=== PATIENT | female | born 1945 | race Caucasian/White ===

== ENCOUNTER 2016-11-30 10:06 | Emergency (ER) | payer BC, OTHER ==
[2016-11-30 10:13] VITALS: BP 133/78; PULSE 70; TEMP 97.5; BMI 28.1
[2016-11-30] MEDS ORDERED: ACETAMINOPHEN 500 MG TABLET (FP) PO ONE (11:44)
[2016-11-30] MEDS ORDERED: ACETAMINOPHEN 500 MG TABLET (FP) ONE (11:46)
--- NOTE | 2016-11-30 11:49 | PDOC ---
History of Present Illness - General Chief Complaint: Pain Stated Complaint: RT FOOT PAIN, PCP SENT Time Seen by Provider: 11/30/16 11:35 History Source: Patient Exam Limitations: No Limitations - History of Present Illness Initial Comments: 11/30/16 11:52 My Chief Complaint: rt. lateral foot pain History of present illness: Patient is a 71 year old female with a history of anemia, GERD, frequent UTIs, bilateral knee replacement here today complaining of worsening pain to her right fifth metatarsal area for the last 4 days. Patient was seen by her forest pathology associate professor Dr. Maico Rodgers who sent her here for a painful right forefoot pain equivocal for fracture shaft of the fifth metatarsal right foot. Patient denies any injury to her foot or twisting her foot. Denies any new shoes. Patient denies any fever. Patient denies any other symptoms. Patient denies numbness of her right foot. 11/30/16 11:54 Occurred: reports: other (4 days ) Severity: Yes: severe (rt. 5th metatarsal ) Lower Extremity Pain Location: right: other (5th metatarsal ) Method of Injury: Yes: unknown Modifying Factors: improves with: None Lower Ext. Injury Location - Specific Injury Location Foot: right foot pain (5th metatarsal ), right foot swelling (rt. 5th metatarsal ), right foot other (rt. 5th metatarsal jt slight erythema) Extremity Pain Location - Extremity Pain Location Extremity Pain Locations: right: other (5th metatarsal area) Past History - Past Medical History Allergies/Adverse Reactions: Allergies Allergy/AdvReac Type Severity Reaction Status Date / Time No Known Drug Allergies Allergy Verified 11/30/16 10:08 Home Medications: Ambulatory Orders Albuterol Sulfate [Proair Respiclick] 90 mcg IH PRN PRN 08/06/16 Ranitidine HCl 150 mg PO DAILY 08/06/16 Aspirin [Ecotrin] 81 mg PO DAILY #0 08/10/16 Furosemide [Lasix -] 20 mg PO DAILY 08/10/16 Pantoprazole Sodium [Protonix -] 40 mg PO DAILY 08/10/16 Anemia: Yes (WAS TREATED WITH IRON) Asthma: No Cancer: No Cardiac Disorders: No CVA: No COPD: No CHF: No Dementia: No Diabetes: No GI Disorders: Yes (gerd,ulcers) Disorders: Yes (HAS HAD FREQUENT UTI'S IN THE PAST) HTN: No Hypercholesterolemia: No Liver Disease: No Seizures: No Thyroid Disease: No - Surgical History Abdominal Surgery: No Appendectomy: No Cardiac Surgery: No Cholecystectomy: No Lung Surgery: No Neurologic Surgery: No Orthopedic Surgery: Yes (RIGHT KNEE REPLACEMENT 2006) Other Surgical History: 11/30/16 11:49 - Immunization History Immunization Up to Date: Yes - Psycho/Social/Smoking Cessation Hx Anxiety: No Suicidal Ideation: No Smoking History: Never smoked Have you smoked in the past 12 months: No Information on smoking cessation initiated: No Hx Alcohol Use: No Drug/Substance Use Hx: No Substance Use Type: None Hx Substance Use Treatment: No Review of Systems - Review of Systems Able to Perform ROS?: Yes Constitutional: No: Symptoms Reported HEENTM: No: Symptoms Reported Respiratory: No: Symptoms reported Cardiac (ROS): No: Symptoms Reported ABD/GI: No: Symptoms Reported : No: Symptoms Reported Musculoskeletal: Yes: Joint Pain (rt. 5th metatarsal ), Joint Swelling (slight rt. 5th metatarsal area) Integumentary: Yes: Erythema (minimal erythema rt. 5th metatarsal ) Neurological: No: Symptoms reported *Physical Exam - Vital Signs Last Vital Signs Temp Pulse Resp BP Pulse Ox 97.5 F L 70 18 133/78 100 11/30/16 10:09 11/30/16 10:09 11/30/16 10:09 11/30/16 10:09 11/30/16 10:09 - Physical Exam General Appearance: Yes: Appropriately Dressed Vascular Pulses: Dorsalis-Pedis (R): 4+ Extremity: positive: Normal Capillary Refill, Normal Range of Motion, Tender ( rt. 5th metatarsal point tenderness), Swelling (minimal rt. 5th metatarsal area ), Erythema (rt. 5th metarsal minimal ) Integumentary: positive: Other (see under extremity ) Neurologic: positive: Normal Response, Responsive. negative: Numbness, Sensory Deficit (rt. foot) Deep Tendon Reflexes: Ankle (R): 4+ Procedures - Consent Consent obtained: From Patient - Splinting Splint Location: Right: Foot Pre-Proc Neuro Vasc Exam: normal Darryn Bandage: 3" Sling: No Complications: No Progress: 11/30/16 12:36 cast shoe applied Medical Decision Making - Medical Decision Making 11/30/16 11:54 Patient is a 71 year old female with a history of anemia, GERD, frequent UTIs, bilateral knee replacement here today complaining of worsening pain to her right fifth metatarsal area for the last 4 days. Patient was seen by her forest pathology associate professor Dr. Maico Rodgers who sent her here for a painful right forefoot pain equivocal for fracture shaft of the fifth metatarsal right foot. Patient denies any injury to her foot or twisting her foot. Denies any new shoes. Patient denies any fever. Patient denies any other symptoms. Patient denies numbness of her right foot. right foot pain over rt. 5th metatarsal with slight edema and erythema r/o fracture rt. 5th metatarsal PLAN: xray right foot revealed a mid shaft fracture of 5 th metatarsal and heel spur per Dr. Carrillo acetaminophen 1000 mg po now Reyna wrap, hard cast shoe follow up with orthopedist 11/30/16 12:30 *DC/Admit/Observation/Transfer Diagnosis at time of Disposition: Fracture, metacarpal shaft Qualifiers: Encounter type: initial encounter Metacarpal bone: fifth Fracture type: closed Fracture alignment: nondisplaced Laterality: right Qualified Code(s): S62.356A - Nondisplaced fracture of shaft of fifth metacarpal bone, right hand, initial encounter for closed fracture - Discharge Dispostion Disposition: HOME Condition at time of disposition: Stable - Referrals Referrals: Ada Oneill [Primary Care Provider] - Kenny Lorenzo MD [Staff Physician] - - Patient Instructions Additional Instructions: Elevate right foot as much as possible and keep darryn wrap on during the day and use hard sole shoe Follow up orthopedist as soon as possible take acetaminophen as needed as directed by ihsan Avoid walking a lot patient voiced understanding of discharge instructions and all questions were answered
== END 2016-11-30 12:41 | disposition home or self-care (01) ==
LOC: JERFT 10:06
DX: S92.354A Nondisplaced fracture of fifth metatarsal bone, right foot, initial encounter for closed fracture (principal); X58.XXXA Exposure to other specified factors, initial encounter; Y93.89 Activity, other specified; Y92.89 Other specified places as the place of occurrence of the external cause
CPT/HCPCS: 73630-TC-RT; 99281-25

== ENCOUNTER 2020-10-15 12:28 | Observation (INO) | payer OTHER, BC ==
[2020-10-15 15:22] LABS: BASO % 1.2 % (0-2.0); EOS % 4.4 % (0-4.5); HEMATOCRIT 33.9 % (32.4-45.2); HEMOGLOBIN 11.4 GM/dL (10.7-15.3); LYMPH % 46.2 % (8-40); MCH 38.5 pg (25.7-33.7); MCHC 33.5 g/dl (32.0-36.0); MEAN PLT VOLUME 8.6 fl (7.5-11.1); MONO % 9.8 % (3.8-10.2); NEUT % 38.4 % (42.8-82.8); PLATELET COUNT 113 K/MM3 (134-434); RBC 2.95 M/mm3 (3.60-5.2); RDW 13.4 % (11.6-15.6); WHITE BLOOD COUNT 2.6 K/mm3 (4.0-10.0)
[2020-10-15 15:39] LABS: CHLORIDE 112 mmol/L (98-107); POTASSIUM 4.3 mmol/L (3.5-5.1); SODIUM 145 mmol/L (136-145)
[2020-10-15 15:41] LABS: ANION GAP 8 MMOL/L (8-16); BLOOD UREA NITROGEN 9.4 mg/dL (7-18); CALCIUM 8.1 mg/dL (8.5-10.1); CO2 25 mmol/L (21-32); GLUCOSE,RANDOM 78 mg/dL (74-106)
[2020-10-15 15:42] LABS: ALBUMIN 2.8 g/dl (3.4-5.0); MAGNESIUM 1.3 mg/dL (1.8-2.4)
[2020-10-15 15:45] LABS: CREATININE 0.7 mg/dL (0.55-1.3); SGOT/AST 69 U/L (15-37); SGPT/ALT 35 U/L (13-61)
[2020-10-15 15:47] LABS: BILIRUBIN,TOTAL 0.3 mg/dL (0.2-1)
[2020-10-15 15:48] LABS: ALK PHOS 89 U/L (45-117)
[2020-10-15] MEDS ORDERED: MAGNESIUM SULF 50% (8.12 MEQ/2 ML-1 GM VIAL) IVPB ONE (16:04)
[2020-10-15 16:07] LABS: ANISOCYTOSIS 3+; MACROCYTOSIS 3+; OVALOCYTE 1+
[2020-10-15 16:08] LABS: PLATELET ESTIMATE SLT DECREASE
[2020-10-15] MEDS ORDERED: MAGNESIUM 1GM/D5W - 1 GM/100 ML IVPB IVPB ONE (16:11)
[2020-10-15] MEDS ORDERED: ALBUTEROL SO4 HFA INHALER IH PRN (20:24)
[2020-10-16 01:19] LABS: EPI CELLS >36 /uL (0-25.1); HYALINE CASTS 3 /uL (0-3.1); PH,URINE 6.5 (5.0-8.0); URINE APPEARANCE CLOUDY; URINE BACTERIA >9,000 /uL (0-1359); URINE BILIRUBIN NEGATIVE (NEGATIVE); URINE COLOR YELLOW; URINE GLUCOSE (UA) NEGATIVE (NEGATIVE); URINE KETONE NEGATIVE (NEGATIVE); URINE LEUK ESTERASE 2+ (NEGATIVE); URINE NITRITE POSITIVE (NEGATIVE); URINE PROTEIN NEGATIVE (NEGATIVE); URINE UROBILINOGEN 0.2 mg/dL (0.2-1.0); URINE WBC 169 /uL (0-25.8)
[2020-10-16 07:27] LABS: BASO % 1.3 % (0-2.0); HEMATOCRIT 33.7 % (32.4-45.2); HEMOGLOBIN 11.6 GM/dL (10.7-15.3); LYMPH % 29.4 % (8-40); MCHC 34.4 g/dl (32.0-36.0); MEAN CELL VOLUME 113.4 fl (80-96); MEAN PLT VOLUME 8.8 fl (7.5-11.1); MONO % 8.6 % (3.8-10.2); NEUT % 57.7 % (42.8-82.8); PLATELET COUNT 117 K/MM3 (134-434); RBC 2.97 M/mm3 (3.60-5.2); RDW 13.1 % (11.6-15.6); WHITE BLOOD COUNT 3.3 K/mm3 (4.0-10.0)
[2020-10-16 07:44] LABS: CHLORIDE 104 mmol/L (98-107); SODIUM 139 mmol/L (136-145)
[2020-10-16 07:50] LABS: CALCIUM 8.2 mg/dL (8.5-10.1)
[2020-10-16 07:51] LABS: ALBUMIN 2.9 g/dl (3.4-5.0); ANION GAP 5 MMOL/L (8-16); BLOOD UREA NITROGEN 11.1 mg/dL (7-18); CO2 30 mmol/L (21-32); GLUCOSE,RANDOM 89 mg/dL (74-106)
[2020-10-16 07:54] LABS: CREATININE 0.8 mg/dL (0.55-1.3); SGOT/AST 81 U/L (15-37); SGPT/ALT 35 U/L (13-61)
[2020-10-16 07:55] LABS: ALK PHOS 97 U/L (45-117)
[2020-10-16 07:56] LABS: TOT PROT 6.2 g/dl (6.4-8.2)
[2020-10-16 08:27] LABS: BILIRUBIN,TOTAL 0.8 mg/dL (0.2-1)
[2020-10-16] MEDS ORDERED: FUROSEMIDE 20 MG TABLET (FP) PO SCH (10:00)
[2020-10-16] MEDS ORDERED: ASPIRIN COATED 81 MG TABLET.EC PO SCH (10:00)
[2020-10-16] MEDS ORDERED: PANTOPRAZOLE 40 MG TABLET PO SCH (10:00)
[2020-10-16 10:21] VITALS: BMI 29.9
[2020-10-16 13:48] VITALS: BP 133/82; PULSE 76; TEMP 97.7
== END 2020-10-16 18:10 | disposition home or self-care (01) ==
LOC: JER 12:28 → JERBED 17:04 → J4S 10-16 06:32
PROVIDERS: ADMIT Internal Medicine; ATTEND Internal Medicine
PROC: 3E0F7SF Introduction of Other Gas into Respiratory Tract, Via Natural or Artificial Opening (ICD-10-PCS; principal; 2020-10-15)
DX: R55 Syncope and collapse (principal); J44.9 Chronic obstructive pulmonary disease, unspecified; D64.9 Anemia, unspecified; E78.00 Pure hypercholesterolemia, unspecified; K44.9 Diaphragmatic hernia without obstruction or gangrene; F32.9 Major depressive disorder, single episode, unspecified; K21.9 Gastro-esophageal reflux disease without esophagitis; Z96.651 Presence of right artificial knee joint; Z87.440 Personal history of urinary (tract) infections
CPT/HCPCS: 36415; 70450-TC; 71045-TC-FY; 80053; 81003; 82272; 82550; 83735; 84484; 85025; 93005; 93010; 94640; 99285-25; C9803; G0378; U0003

== ENCOUNTER 2020-10-17 18:33 | Emergency (ER) | payer OTHER, BC ==
[2020-10-17 18:46] VITALS: TEMP 98.4; BMI 25.3
[2020-10-17] MEDS ORDERED: SODIUM CHLORIDE 0.9% 500 ML INFUS.BAG IV ONE (19:38)
[2020-10-17 20:01] LABS: BASO % 1.5 % (0-2.0); EOS % 4.4 % (0-4.5); HEMATOCRIT 33.7 % (32.4-45.2); HEMOGLOBIN 11.4 GM/dL (10.7-15.3); LYMPH % 40.3 % (8-40); MCH 38.7 pg (25.7-33.7); MCHC 33.8 g/dl (32.0-36.0); MEAN CELL VOLUME 114.4 fl (80-96); MEAN PLT VOLUME 8.7 fl (7.5-11.1); MONO % 10.6 % (3.8-10.2); NEUT % 43.2 % (42.8-82.8); PLATELET COUNT 152 K/MM3 (134-434); RBC 2.94 M/mm3 (3.60-5.2); RDW 13.2 % (11.6-15.6)
[2020-10-17 20:23] LABS: CHLORIDE 105 mmol/L (98-107); POTASSIUM 5.1 mmol/L (3.5-5.1); SODIUM 139 mmol/L (136-145)
[2020-10-17 20:26] LABS: CALCIUM 8.3 mg/dL (8.5-10.1)
[2020-10-17 20:27] LABS: ALBUMIN 2.8 g/dl (3.4-5.0); ANION GAP 7 MMOL/L (8-16); BLOOD UREA NITROGEN 9.6 mg/dL (7-18); CO2 27 mmol/L (21-32); GLUCOSE,RANDOM 95 mg/dL (74-106); MAGNESIUM 1.4 mg/dL (1.8-2.4)
[2020-10-17 20:30] LABS: CREATININE 0.9 mg/dL (0.55-1.3); SGOT/AST 75 U/L (15-37); SGPT/ALT 33 U/L (13-61)
[2020-10-17 20:32] LABS: BILIRUBIN,TOTAL 0.6 mg/dL (0.2-1); TOT PROT 6.1 g/dl (6.4-8.2)
[2020-10-17 20:33] LABS: ALK PHOS 93 U/L (45-117)
[2020-10-17 21:30] VITALS: BP 111/87; PULSE 89
== END 2020-10-17 21:30 | disposition home or self-care (01) ==
LOC: JER 18:33
DX: R42 Dizziness and giddiness (principal)
CPT/HCPCS: 36415; 71045-TC-FY; 80053; 82550; 82962; 83735; 84484; 85025; 93005; 93010; 99285-25

== ENCOUNTER 2020-11-14 17:42 | Emergency (ER) | payer OTHER, BC ==
[2020-11-14 18:09] VITALS: TEMP 97.6; BMI 24.3
[2020-11-14 19:56] LABS: BASO % 0.7 % (0-2.0); EOS % 3.3 % (0-4.5); HEMATOCRIT 35.9 % (32.4-45.2); MCH 38.2 pg (25.7-33.7); MCHC 33.5 g/dl (32.0-36.0); MEAN CELL VOLUME 114.1 fl (80-96); MONO % 9.6 % (3.8-10.2); NEUT % 46.4 % (42.8-82.8); PLATELET COUNT 133 K/MM3 (134-434); RBC 3.14 M/mm3 (3.60-5.2); RDW 13.8 % (11.6-15.6); WHITE BLOOD COUNT 2.7 K/mm3 (4.0-10.0)
[2020-11-14 20:02] LABS: INR 0.92 (0.83-1.09); PROTHROMBIN TIME (PATIENT) 11.4 SEC (9.7-13.0)
[2020-11-14 20:05] LABS: ACTIVATED PTT 28.5 SECONDS (25.2-36.5)
[2020-11-14 20:12] LABS: POTASSIUM 4.8 mmol/L (3.5-5.1)
[2020-11-14 20:14] LABS: ALBUMIN 3.3 g/dl (3.4-5.0); CALCIUM 8.2 mg/dL (8.5-10.1)
[2020-11-14 20:15] LABS: BLOOD UREA NITROGEN 16.7 mg/dL (7-18)
[2020-11-14 20:18] LABS: CREATININE 1.2 mg/dL (0.55-1.3)
[2020-11-14 20:19] LABS: BILIRUBIN,TOTAL 0.5 mg/dL (0.2-1); TOT PROT 6.8 g/dl (6.4-8.2)
[2020-11-14 21:38] VITALS: BP 112/74; PULSE 60
== END 2020-11-14 21:39 | disposition home or self-care (01) ==
LOC: JER 17:42
DX: S01.111A Laceration without foreign body of right eyelid and periocular area, initial encounter (principal); W19.XXXA Unspecified fall, initial encounter
CPT/HCPCS: 36415; 70450-TC; 71045-TC-FY; 72100-TC-FY; 72125-TC; 72170-TC-FY; 80053; 80307; 84484; 85025; 85610; 85730; 93005; 93010; 99285-25

== ENCOUNTER 2022-01-30 14:22 | Inpatient (IN) | payer OTHER, BC ==
[2022-01-30] MEDS ORDERED: CEFTRIAXONE 1 GM in DEXTROSE 5%-WATER - 100 ML IVPB ONE (15:02)
[2022-01-30] MEDS ORDERED: chlordiazePOXIDE HCL 25 MG CAPSULE PO ONE (15:31)
[2022-01-30] MEDS ORDERED: SODIUM CHLORIDE 0.9% 500 ML INFUS.BAG IV ONE (15:31)
[2022-01-30] MEDS ORDERED: CEFTRIAXONE 1 GM/50 ML BAG ONE (15:36)
[2022-01-30 16:23] LABS: BASO % 0.5 % (0-2.0); HEMATOCRIT 40.6 % (32.4-45.2); HEMOGLOBIN 13.1 GM/dL (10.7-15.3); LYMPH % 15.3 % (8-40); MCH 37.9 pg (25.7-33.7); MCHC 32.2 g/dl (32.0-36.0); MEAN CELL VOLUME 117.9 fl (80-96); MEAN PLT VOLUME 7.9 fl (7.5-11.1); NEUT % 81.2 % (42.8-82.8); PLATELET COUNT 147 10^3/uL (134-434); RBC 3.44 M/mm3 (3.60-5.2); RDW 13.1 % (11.6-15.6); WHITE BLOOD COUNT 5.9 K/mm3 (4.0-10.0)
[2022-01-30 16:24] LABS: CALCIUM 9.3 mg/dL (8.5-10.1)
[2022-01-30 16:25] LABS: ALBUMIN 3.4 g/dl (3.4-5.0); BLOOD UREA NITROGEN 18.8 mg/dL (7-18)
[2022-01-30 16:28] LABS: CREATININE 0.9 mg/dL (0.55-1.3)
[2022-01-30 16:29] LABS: BILIRUBIN,TOTAL 1.2 mg/dL (0.2-1); TOT PROT 7.2 g/dl (6.4-8.2)
[2022-01-30] MEDS ORDERED: chlordiazePOXIDE HCL 25 MG CAPSULE ONE (17:17)
[2022-01-30] MEDS ORDERED: ALBUTEROL SO4 HFA INHALER IH PRN (18:49)
[2022-01-30] MEDS ORDERED: SODIUM CHLORIDE 1,000 ML IV SCH (19:00)
[2022-01-30] MEDS: chlordiazePOXIDE HCL 25 MG CAPSULE PO SCH (19:37)
[2022-01-30] MEDS: HEPARIN NA (PORCINE) 5,000 UNITS/ML 1ML VIAL SQ SCH (23:16)
[2022-01-31] MEDS: IBUPROFEN 400 MG TABLET (FP) PO PRN ×2 (01:41→22:14)
[2022-01-31] MEDS: guaiFENesin 200 MG/10 ML 10 ML UNIT-DOSE CUPS PO PRN ×2 (01:41→22:15)
[2022-01-31] MEDS: chlordiazePOXIDE HCL 25 MG CAPSULE PO SCH ×3 (03:01→18:38)
[2022-01-31 09:56] LABS: MEAN PLT VOLUME 8.1 fl (7.5-11.1)
[2022-01-31 09:58] LABS: BASO % 0.1 % (0-2.0); HEMATOCRIT 34.1 % (32.4-45.2); HEMOGLOBIN 11.6 GM/dL (10.7-15.3); LYMPH % 7.6 % (8-40); MCH 38.1 pg (25.7-33.7); MONO % 6.1 % (3.8-10.2); NEUT % 86.2 % (42.8-82.8); PLATELET COUNT 111 10^3/uL (134-434); RBC 3.04 M/mm3 (3.60-5.2); RDW 12.6 % (11.6-15.6); WHITE BLOOD COUNT 6.6 K/mm3 (4.0-10.0)
[2022-01-31 10:34] LABS: ALBUMIN 3.1 g/dl (3.4-5.0); BILIRUBIN,TOTAL 1.3 mg/dL (0.2-1); BLOOD UREA NITROGEN 26.7 mg/dL (7-18); CALCIUM 8.4 mg/dL (8.5-10.1); CREATININE 1.1 mg/dL (0.55-1.3); TOT PROT 6.4 g/dl (6.4-8.2)
[2022-01-31] MEDS ORDERED: cefTRIAXone SODIUM 1 GM VIAL ONE (10:39)
[2022-01-31] MEDS ORDERED: DEXTROSE 5%-WATER - 50 ML IVPB ONE (10:39)
[2022-01-31] MEDS: CEFTRIAXONE 1 GM in DEXTROSE 5%-WATER - 50 ML IVPB SCH (10:48)
[2022-01-31] MEDS: SODIUM CHLORIDE 1,000 ML IV SCH (10:49)
[2022-01-31] MEDS: HEPARIN NA (PORCINE) 5,000 UNITS/ML 1ML VIAL SQ SCH ×2 (10:50→21:31)
[2022-01-31] MEDS: PANTOPRAZOLE 40 MG TABLET PO SCH (10:50)
[2022-01-31] MEDS: FAMOTIDINE 20 MG TABLET PO SCH (10:50)
[2022-01-31] MEDS: ASPIRIN COATED 81 MG TABLET.EC PO SCH (10:50)
[2022-01-31 14:59] LABS: BILIRUBIN,DIRECT 0.6 mg/dL (0.0-0.2)
[2022-01-31] MEDS: POLYETHYLENE GLYCOL (HEALTHYLAX) 3350 17 GM PACKET PO SCH (18:37)
[2022-01-31 19:35] LABS: EPI CELLS >36 /uL (0-25.1); HYALINE CASTS 7 /uL (0-3.1); URINE APPEARANCE CLEAR; URINE BACTERIA 55 /uL (0-1359); URINE BILIRUBIN NEGATIVE (NEGATIVE); URINE COLOR YELLOW; URINE GLUCOSE (UA) NEGATIVE (NEGATIVE); URINE KETONE 2+ (NEGATIVE); URINE LEUK ESTERASE 2+ (NEGATIVE); URINE NITRITE NEGATIVE (NEGATIVE); URINE PROTEIN 1+ (NEGATIVE); URINE RBC 218 /uL (0-23.9); URINE UROBILINOGEN 0.2 mg/dL (0.2-1.0); URINE WBC 150 /uL (0-25.8)
[2022-02-01] MEDS: chlordiazePOXIDE HCL 25 MG CAPSULE PO SCH ×2 (03:02→10:05)
[2022-02-01] MEDS: guaiFENesin 200 MG/10 ML 10 ML UNIT-DOSE CUPS PO PRN ×2 (04:38→10:38)
[2022-02-01] MEDS: SODIUM CHLORIDE 1,000 ML IV SCH (08:37)
[2022-02-01] MEDS: IBUPROFEN 400 MG TABLET (FP) PO PRN (08:39)
[2022-02-01 09:18] LABS: BASO % 0.2 % (0-2.0); EOS % 0.2 % (0-4.5); HEMATOCRIT 33.7 % (32.4-45.2); HEMOGLOBIN 11.5 GM/dL (10.7-15.3); LYMPH % 19.2 % (8-40); MCH 38.3 pg (25.7-33.7); MCHC 34.2 g/dl (32.0-36.0); MEAN CELL VOLUME 111.9 fl (80-96); MEAN PLT VOLUME 8.2 fl (7.5-11.1); MONO % 5.2 % (3.8-10.2); NEUT % 75.2 % (42.8-82.8); PLATELET COUNT 83 10^3/uL (134-434); RBC 3.01 M/mm3 (3.60-5.2); RDW 12.5 % (11.6-15.6); WHITE BLOOD COUNT 5.3 K/mm3 (4.0-10.0)
[2022-02-01] MEDS ORDERED: cefTRIAXone SODIUM 1 GM VIAL ONE (09:38)
[2022-02-01] MEDS ORDERED: DEXTROSE 5%-WATER - 50 ML IVPB ONE (09:38)
[2022-02-01 09:49] LABS: CALCIUM 8.5 mg/dL (8.5-10.1)
[2022-02-01 09:50] LABS: ALBUMIN 3.4 g/dl (3.4-5.0); BLOOD UREA NITROGEN 24.5 mg/dL (7-18)
[2022-02-01 09:52] LABS: BILIRUBIN,DIRECT 0.5 mg/dL (0.0-0.2); CREATININE 0.8 mg/dL (0.55-1.3)
[2022-02-01 09:54] LABS: BILIRUBIN,TOTAL 1.2 mg/dL (0.2-1); TOT PROT 6.7 g/dl (6.4-8.2)
[2022-02-01] MEDS: CEFTRIAXONE 1 GM in DEXTROSE 5%-WATER - 50 ML IVPB SCH (10:01)
[2022-02-01] MEDS: HEPARIN NA (PORCINE) 5,000 UNITS/ML 1ML VIAL SQ SCH ×2 (10:02→21:26)
[2022-02-01] MEDS: PANTOPRAZOLE 40 MG TABLET PO SCH (10:02)
[2022-02-01] MEDS: ASPIRIN COATED 81 MG TABLET.EC PO SCH (10:02)
[2022-02-01] MEDS: FAMOTIDINE 20 MG TABLET PO SCH (10:02)
[2022-02-01] MEDS: POLYETHYLENE GLYCOL (HEALTHYLAX) 3350 17 GM PACKET PO SCH (10:03)
[2022-02-02] MEDS: guaiFENesin 200 MG/10 ML 10 ML UNIT-DOSE CUPS PO PRN (04:35)
[2022-02-02] MEDS ORDERED: cefTRIAXone SODIUM 1 GM VIAL ONE (10:04)
[2022-02-02] MEDS: FAMOTIDINE 20 MG TABLET PO SCH (10:30)
[2022-02-02] MEDS: FOLIC ACID 1 MG TABLET (FP) PO SCH (10:30)
[2022-02-02] MEDS: IBUPROFEN 400 MG TABLET (FP) PO PRN (10:30)
[2022-02-02] MEDS: POLYETHYLENE GLYCOL (HEALTHYLAX) 3350 17 GM PACKET PO SCH ×2 (10:30→10:48)
[2022-02-02] MEDS: CEFTRIAXONE 1 GM in DEXTROSE 5%-WATER - 50 ML IVPB SCH (10:30)
[2022-02-02] MEDS: ASPIRIN COATED 81 MG TABLET.EC PO SCH (10:30)
[2022-02-02] MEDS: HEPARIN NA (PORCINE) 5,000 UNITS/ML 1ML VIAL SQ SCH ×2 (10:30→22:06)
[2022-02-02] MEDS: THIAMINE HCL 100 MG TABLET (FP) PO SCH (10:34)
[2022-02-02] MEDS: PANTOPRAZOLE 40 MG TABLET PO SCH (10:34)
[2022-02-02] MEDS: SODIUM CHLORIDE 1,000 ML IV SCH ×2 (10:51→16:54)
[2022-02-02 11:30] LABS: BASO % 0.4 % (0-2.0); EOS % 0.7 % (0-4.5); HEMATOCRIT 32.1 % (32.4-45.2); LYMPH % 19.3 % (8-40); MCH 38.8 pg (25.7-33.7); MCHC 34.3 g/dl (32.0-36.0); MEAN PLT VOLUME 8.6 fl (7.5-11.1); MONO % 6.9 % (3.8-10.2); NEUT % 72.7 % (42.8-82.8); PLATELET COUNT 75 10^3/uL (134-434); RBC 2.84 M/mm3 (3.60-5.2); RDW 12.6 % (11.6-15.6); WHITE BLOOD COUNT 3.7 K/mm3 (4.0-10.0)
[2022-02-02 11:48] LABS: BLOOD UREA NITROGEN 11.8 mg/dL (7-18); CALCIUM 8.3 mg/dL (8.5-10.1)
[2022-02-02 11:50] LABS: CREATININE 0.6 mg/dL (0.55-1.3)
[2022-02-02 11:51] LABS: BILIRUBIN,TOTAL 1.2 mg/dL (0.2-1); TOT PROT 6.2 g/dl (6.4-8.2)
[2022-02-02 11:58] LABS: ANISOCYTOSIS 2+; MACROCYTOSIS 2+
[2022-02-02] MEDS: POTASSIUM CHLORIDE TABS 10 MEQ TABLET.ER (FP) PO SCH (12:17)
[2022-02-02 23:52] LABS: BILIRUBIN,DIRECT 0.5 mg/dL (0.0-0.2)
[2022-02-03 08:38] LABS: BASO % 0.5 % (0-2.0); EOS % 1.9 % (0-4.5); HEMATOCRIT 32.2 % (32.4-45.2); LYMPH % 22.5 % (8-40); MCH 38.2 pg (25.7-33.7); MCHC 34.2 g/dl (32.0-36.0); MEAN CELL VOLUME 111.6 fl (80-96); MEAN PLT VOLUME 8.4 fl (7.5-11.1); MONO % 7.3 % (3.8-10.2); NEUT % 67.8 % (42.8-82.8); PLATELET COUNT 78 10^3/uL (134-434); RBC 2.88 M/mm3 (3.60-5.2); RDW 12.5 % (11.6-15.6); WHITE BLOOD COUNT 3.7 K/mm3 (4.0-10.0)
[2022-02-03 09:06] LABS: CALCIUM 8.5 mg/dL (8.5-10.1)
[2022-02-03 09:07] LABS: ALBUMIN 3.3 g/dl (3.4-5.0); BLOOD UREA NITROGEN 8.7 mg/dL (7-18)
[2022-02-03 09:10] LABS: CREATININE 0.6 mg/dL (0.55-1.3)
[2022-02-03 09:11] LABS: BILIRUBIN,TOTAL 1.2 mg/dL (0.2-1); TOT PROT 6.5 g/dl (6.4-8.2)
[2022-02-03] MEDS ORDERED: cefTRIAXone SODIUM 1 GM VIAL ONE (10:11)
[2022-02-03] MEDS ORDERED: DEXTROSE 5%-WATER - 50 ML IVPB ONE (10:11)
[2022-02-03] MEDS: THIAMINE HCL 100 MG TABLET (FP) PO SCH (10:16)
[2022-02-03] MEDS: SODIUM CHLORIDE 1,000 ML IV SCH (10:16)
[2022-02-03] MEDS: PANTOPRAZOLE 40 MG TABLET PO SCH (10:17)
[2022-02-03] MEDS: IBUPROFEN 400 MG TABLET (FP) PO PRN (10:17)
[2022-02-03] MEDS: POTASSIUM CHLORIDE TABS 10 MEQ TABLET.ER (FP) PO SCH (10:17)
[2022-02-03] MEDS: FAMOTIDINE 20 MG TABLET PO SCH (10:17)
[2022-02-03] MEDS: FOLIC ACID 1 MG TABLET (FP) PO SCH (10:17)
[2022-02-03] MEDS: ASPIRIN COATED 81 MG TABLET.EC PO SCH (10:18)
[2022-02-03] MEDS: HEPARIN NA (PORCINE) 5,000 UNITS/ML 1ML VIAL SQ SCH (10:18)
[2022-02-03] MEDS: CEFTRIAXONE 1 GM in DEXTROSE 5%-WATER - 50 ML IVPB SCH (10:18)
[2022-02-03] MEDS: guaiFENesin 200 MG/10 ML 10 ML UNIT-DOSE CUPS PO PRN ×2 (10:18→18:22)
[2022-02-03] MEDS: POLYETHYLENE GLYCOL (HEALTHYLAX) 3350 17 GM PACKET PO SCH (10:19)
[2022-02-03] MEDS ORDERED: POTASSIUM CHLORIDE TABS 20 MEQ TABLET.ER (FP) PO ONE (11:00)
[2022-02-03] MEDS ORDERED: FUROSEMIDE 40 MG/4 ML INJECTABLE VIAL IVPUSH ONE (11:00)
[2022-02-03 12:15] LABS: MAGNESIUM 1.5 mg/dL (1.8-2.4)
[2022-02-03] MEDS: metoPROLOL SUCCINATE 25 MG TAB.SR.24H (FP) PO SCH (18:17)
[2022-02-04 08:37] LABS: BASO % 0.7 % (0-2.0); EOS % 3.3 % (0-4.5); HEMATOCRIT 30.2 % (32.4-45.2); HEMOGLOBIN 10.3 GM/dL (10.7-15.3); LYMPH % 25.2 % (8-40); MCH 38.4 pg (25.7-33.7); MEAN CELL VOLUME 113.2 fl (80-96); MEAN PLT VOLUME 8.2 fl (7.5-11.1); MONO % 9.6 % (3.8-10.2); NEUT % 61.2 % (42.8-82.8); PLATELET COUNT 82 10^3/uL (134-434); RBC 2.67 M/mm3 (3.60-5.2); RDW 12.6 % (11.6-15.6); WHITE BLOOD COUNT 3.1 K/mm3 (4.0-10.0)
[2022-02-04 08:59] LABS: ALBUMIN 2.9 g/dl (3.4-5.0); BLOOD UREA NITROGEN 9.6 mg/dL (7-18); CALCIUM 8.5 mg/dL (8.5-10.1)
[2022-02-04 09:02] LABS: CREATININE 0.6 mg/dL (0.55-1.3)
[2022-02-04 09:04] LABS: TOT PROT 5.9 g/dl (6.4-8.2)
[2022-02-04] MEDS ORDERED: DEXTROSE 5%-WATER - 50 ML IVPB ONE (10:27)
[2022-02-04] MEDS ORDERED: cefTRIAXone SODIUM 1 GM VIAL ONE (10:27)
[2022-02-04] MEDS: POTASSIUM CHLORIDE TABS 20 MEQ TABLET.ER (FP) PO SCH (10:54)
[2022-02-04] MEDS: FAMOTIDINE 20 MG TABLET PO SCH (10:54)
[2022-02-04] MEDS: POLYETHYLENE GLYCOL (HEALTHYLAX) 3350 17 GM PACKET PO SCH (10:54)
[2022-02-04] MEDS: FOLIC ACID 1 MG TABLET (FP) PO SCH (10:54)
[2022-02-04] MEDS: PANTOPRAZOLE 40 MG TABLET PO SCH (10:54)
[2022-02-04] MEDS: CEFTRIAXONE 1 GM in DEXTROSE 5%-WATER - 50 ML IVPB SCH (10:54)
[2022-02-04] MEDS: THIAMINE HCL 100 MG TABLET (FP) PO SCH (10:55)
[2022-02-04] MEDS: metoPROLOL SUCCINATE 25 MG TAB.SR.24H (FP) PO SCH (10:55)
[2022-02-04] MEDS: guaiFENesin 200 MG/10 ML 10 ML UNIT-DOSE CUPS PO PRN (11:02)
[2022-02-05] MEDS: IBUPROFEN 400 MG TABLET (FP) PO PRN (06:44)
[2022-02-05 08:10] LABS: BASO % 0.4 % (0-2.0); EOS % 2.9 % (0-4.5); HEMATOCRIT 29.3 % (32.4-45.2); LYMPH % 21.3 % (8-40); MCH 38.6 pg (25.7-33.7); MCHC 34.2 g/dl (32.0-36.0); MEAN PLT VOLUME 8.5 fl (7.5-11.1); NEUT % 64.4 % (42.8-82.8); PLATELET COUNT 92 10^3/uL (134-434); RDW 12.7 % (11.6-15.6); WHITE BLOOD COUNT 3.8 K/mm3 (4.0-10.0)
[2022-02-05 08:41] LABS: ALBUMIN 2.9 g/dl (3.4-5.0); BLOOD UREA NITROGEN 9.1 mg/dL (7-18)
[2022-02-05 08:43] LABS: CALCIUM 8.7 mg/dL (8.5-10.1); CREATININE 0.7 mg/dL (0.55-1.3)
[2022-02-05 08:45] LABS: BILIRUBIN,TOTAL 0.9 mg/dL (0.2-1)
[2022-02-05] MEDS ORDERED: FUROSEMIDE 40 MG/4 ML INJECTABLE VIAL IVPUSH ONE ×3 (10:12→14:15)
[2022-02-05] MEDS ORDERED: POTASSIUM CHLORIDE TABS 20 MEQ TABLET.ER (FP) PO ONE (10:12)
[2022-02-05] MEDS ORDERED: ALBUTEROL SO4 0.083% IH SOL 2.5 MG/3 ML VIAL.NEB. NEB PRN (10:13)
[2022-02-05] MEDS ORDERED: cefTRIAXone SODIUM 1 GM VIAL ONE (10:38)
[2022-02-05] MEDS ORDERED: DEXTROSE 5%-WATER - 50 ML IVPB ONE (10:39)
[2022-02-05] MEDS: THIAMINE HCL 100 MG TABLET (FP) PO SCH (10:42)
[2022-02-05] MEDS: FAMOTIDINE 20 MG TABLET PO SCH (10:42)
[2022-02-05] MEDS: PANTOPRAZOLE 40 MG TABLET PO SCH (10:42)
[2022-02-05] MEDS: FOLIC ACID 1 MG TABLET (FP) PO SCH (10:42)
[2022-02-05] MEDS: metoPROLOL SUCCINATE 25 MG TAB.SR.24H (FP) PO SCH (10:42)
[2022-02-05] MEDS: CEFTRIAXONE 1 GM in DEXTROSE 5%-WATER - 50 ML IVPB SCH (10:43)
[2022-02-05] MEDS: POLYETHYLENE GLYCOL (HEALTHYLAX) 3350 17 GM PACKET PO SCH (10:43)
[2022-02-05] MEDS: POTASSIUM CHLORIDE TABS 20 MEQ TABLET.ER (FP) PO SCH (10:43)
[2022-02-06 10:21] LABS: ALBUMIN 3.1 g/dl (3.4-5.0); BLOOD UREA NITROGEN 10.1 mg/dL (7-18); CALCIUM 9.2 mg/dL (8.5-10.1)
[2022-02-06 10:24] LABS: CREATININE 0.6 mg/dL (0.55-1.3)
[2022-02-06 10:25] LABS: TOT PROT 6.4 g/dl (6.4-8.2)
[2022-02-06] MEDS ORDERED: cefTRIAXone SODIUM 1 GM VIAL ONE (11:51)
[2022-02-06] MEDS: CEFTRIAXONE 1 GM in DEXTROSE 5%-WATER - 50 ML IVPB SCH (12:05)
[2022-02-06] MEDS: FOLIC ACID 1 MG TABLET (FP) PO SCH (12:10)
[2022-02-06] MEDS: metoPROLOL SUCCINATE 25 MG TAB.SR.24H (FP) PO SCH (12:10)
[2022-02-06] MEDS: POLYETHYLENE GLYCOL (HEALTHYLAX) 3350 17 GM PACKET PO SCH (12:10)
[2022-02-06] MEDS: POTASSIUM CHLORIDE TABS 20 MEQ TABLET.ER (FP) PO SCH (12:11)
[2022-02-06] MEDS: THIAMINE HCL 100 MG TABLET (FP) PO SCH (12:11)
[2022-02-06 21:28] VITALS: BMI 23.7
[2022-02-07] MEDS: POLYETHYLENE GLYCOL (HEALTHYLAX) 3350 17 GM PACKET PO SCH (10:23)
[2022-02-07] MEDS: THIAMINE HCL 100 MG TABLET (FP) PO SCH (10:23)
[2022-02-07] MEDS: metoPROLOL SUCCINATE 25 MG TAB.SR.24H (FP) PO SCH (10:23)
[2022-02-07] MEDS: FOLIC ACID 1 MG TABLET (FP) PO SCH (10:23)
[2022-02-07] MEDS: ACETAMINOPHEN 325 MG TABLET (FP) PO PRN (17:27)
[2022-02-08] MEDS: ACETAMINOPHEN 325 MG TABLET (FP) PO PRN ×3 (05:28→20:53)
[2022-02-08] MEDS: THIAMINE HCL 100 MG TABLET (FP) PO SCH (10:03)
[2022-02-08] MEDS: POLYETHYLENE GLYCOL (HEALTHYLAX) 3350 17 GM PACKET PO SCH (10:03)
[2022-02-08] MEDS: FOLIC ACID 1 MG TABLET (FP) PO SCH (10:03)
[2022-02-08] MEDS: metoPROLOL SUCCINATE 25 MG TAB.SR.24H (FP) PO SCH (10:11)
[2022-02-08 23:22] VITALS: BP 143/80; PULSE 82; TEMP 99.5
== END 2022-02-09 00:15 | DRG 433 ==
LOC: JER 14:22 → JERBED 17:00 → J6S 18:23
PROVIDERS: ADMIT Internal Medicine; ATTEND Internal Medicine
DX: K70.10 Alcoholic hepatitis without ascites (principal); N39.0 Urinary tract infection, site not specified; D61.818 Other pancytopenia; J90 Pleural effusion, not elsewhere classified; M62.82 Rhabdomyolysis; N17.9 Acute kidney failure, unspecified; K21.9 Gastro-esophageal reflux disease without esophagitis; J45.909 Unspecified asthma, uncomplicated; R42 Dizziness and giddiness; E78.00 Pure hypercholesterolemia, unspecified; E87.6 Hypokalemia; I25.10 Atherosclerotic heart disease of native coronary artery without angina pectoris; M54.50 Low back pain, unspecified; J98.4 Other disorders of lung; F32.A Depression, unspecified; R13.10 Dysphagia, unspecified; F10.20 Alcohol dependence, uncomplicated; D75.89 Other specified diseases of blood and blood-forming organs
CPT/HCPCS: 36415; 70450-TC; 71045-TC-FY; 71046-TC-FY; 71250-TC; 74220-TC-FY; 76641-TC-LT; 76700-TC; 80053; 80061; 80076; 80307; 81003; 82043; 82140; 82550; 82553; 82570; 82607; 82747; 82962; 83036; 83735; 84156; 84439; 84443; 84484; 85014; 85025; 85610; 85730; 86022; 86850; 86900; 86901; 87086; 87186; 93005; 93010; 93306-TC; 97116-GP; 97162-GP; 99285-25; C9803-CS; J1644; U0003; U0005

== ENCOUNTER → 2023-09-09 | Day surgery (SDC) | payer OTHER, BC | END | disposition home or self-care (01) | LOC: FMAMMOTONE 08:17 | PROVIDERS: ATTEND Specialist | PROC: 0HBT3ZX Excision of Right Breast, Percutaneous Approach, Diagnostic (ICD-10-PCS; principal; 2023-09-09) | DX: D24.1 Benign neoplasm of right breast (principal); N60.31 Fibrosclerosis of right breast; N64.89 Other specified disorders of breast; R92.0 Mammographic microcalcification found on diagnostic imaging of breast | CPT/HCPCS: 19081; 76098-TC-FY; 87899; 88305-TC; A4648 ==